=== PATIENT | male | born 1935 | race Caucasian/White ===

== ENCOUNTER 2017-01-30 08:04 | Emergency (ER) | payer MEDICARE, BC ==
[~2017-01-30] VITALS: Ht 172.7 cm; Wt 81.6 kg
--- NOTE | ~2017-01-30 | CR181 ---
[facility] A Service of [facility] & [facility] & [facility] RADIOLOGY TEXT RESULTS PATIENT: MARIS CAZARES LOCATION: [facility] : 37 UNIT #: [id number] AGE: [address]: Elaine Monge SEX: M ORDER DR: [id number] [facility] [address] [place], [place] [address] [id number] E MR#: [id number] Acc #: [id number] NAME: MARIS CAZARES : 1935 SEX: M STUDY DATE/TIME: 01/30/2017 9:07 UNIT: [facility] ROOM: STUDY DESCRIPTION: CR Lumbar Spine 2 or 3 Views Attending Physician: Elaine Monge P.A.-C. Ordering Physician: Elaine Monge P.A.-C. Primary Care Physician: Jorge Lopez M.D. MEDICAL IMAGING REPORT This report is preliminary unless electronic signature is present EXAM Lumbar series, 01/30/2017. INDICATIONS 81-year-old male with history of low back pain for 2 weeks, fell week ago but the patient says the hip has been hurting for longer. TECHNIQUE Three views of the lumbar spine. COMPARISON We have no comparisons FINDINGS There is minimal grade 1 antegrade listhesis of L5 on S1. This probably relates to degenerative facet arthropathy which is moderately severe. Alignment otherwise preserved. Vertebral body heights intact. 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 Marginal osteophytes are prominent in the upper lumbar and lower thoracic levels. There is atherosclerotic disease of the aorta and there is aneurysmal dilatation of the infrarenal abdominal aorta at the L4-5 level measuring up to at least 4 cm. IMPRESSION 1. Degenerative changes in the lumbar spine. No acute fracture. Grade 1 antegrade listhesis of L5 on S1, probably relates to facet arthropathy. 2. Aneurysmal dilatation of the infrarenal abdominal aorta measures greater than 4 cm at the L 4-5 level. This could be better assessed with cross-sectional imaging when clinically appropriate. We have no comparisons in our system. [facility] A Service of [facility] & [facility] & [facility] RADIOLOGY TEXT RESULTS PATIENT: MARIS CAZARES LOCATION: [facility] : 37 UNIT #: [id number] AGE: [address]: Elaine Monge SEX: M ORDER DR: Dictated by... Keenan Cintron M.D. THIS IS AN ELECTRONICALLY VERIFIED REPORT Keenan Cintron M.D. at 01/30/2017 5:18 PM MARY/nereida TD: 01/30/2017 13:57 JOB #: [id number] MEDICAL IMAGING REPORT Page 1 of 1 COPY
--- NOTE | ~2017-01-30 | CR151 ---
[facility] A Service of [facility] & [facility] RADIOLOGY TEXT RESULTS PATIENT: MARIS CAZARES LOCATION: [facility] : 37 UNIT #: [id number] AGE: [address]: Elaine Monge SEX: M ORDER DR: [id number] [facility] [address] [place], [place] [address] [id number] E MR#: [id number] Acc #: [id number] NAME: MARIS CAZARES : 1935 SEX: M STUDY DATE/TIME: 01/30/2017 9:07 UNIT: [facility] ROOM: STUDY DESCRIPTION: CR Hip Min 2 Views Rt Attending Physician: Elaine Monge P.A.-C. Ordering Physician: Elaine Monge P.A.-C. Primary Care Physician: Jorge Lopez M.D. MEDICAL IMAGING REPORT This report is preliminary unless electronic signature is present EXAM Right hip 01/30/2017 INDICATION 81-year-old male with right hip and low back pain for 2 weeks after a fall 1 week ago but the patient says the hip has been hurting since the fall. TECHNIQUE Two views of the right hip. No comparisons. FINDINGS Bony pelvis intact. Mild degenerative change of the right hip. No acute fracture. The bones are osteopenic. There is atherosclerotic disease. IMPRESSION Mild degenerative change of the right hip. Degenerative change in the lumbar spine. Otherwise negative. Dictated by... Keenan Cintron M.D. THIS IS AN ELECTRONICALLY VERIFIED REPORT Keenan Cintron M.D. at 01/30/2017 5:18 PM MARY/abiel TD: 01/30/2017 13:43 JOB #: [id number] MEDICAL IMAGING REPORT Page 1 of 1 COPY
[~2017-01-30 08:04] MED LIST: ADVAIR 2501 DISK W/D; AFEDITAB CR30 MG PO; ALBUTEROL17 GM; ASPIRIN EC81 M1; COMBIVENT INH14.7 GM; COZAAR25 MG PO; FISH OIL 1,0001 EAC2 PO; LITHIUM; LOTREL; LOTREL 5/20 MG1 CAP; MULTI-DAY VITAM1 TAB PO; NORVASC PO; OSTEO BI-FLEX1 EAC2 PO; PROTONIX PO; SIMVASTATIN40 MG PO; SINGULAIR; SULAR; TRICOR PO; VITAL-D RX TABL1 TAB PO; ZOCOR; [UNRECOGNIZED DRUG - OTHER]
== END 2017-01-30 10:56 | disposition home or self-care (01) ==
LOC: CED 08:04
DX: M16.11 Unilateral primary osteoarthritis, right hip (principal); I10 Essential (primary) hypertension; F17.200 Nicotine dependence, unspecified, uncomplicated; Z98.890 Other specified postprocedural states; Z79.82 Long term (current) use of aspirin; Z79.899 Other long term (current) drug therapy; Z88.8 Allergy status to other drugs, medicaments and biological substances; W18.30XA Fall on same level, unspecified, initial encounter; Y92.009 Unspecified place in unspecified non-institutional (private) residence as the place of occurrence of the external cause
CPT/HCPCS: 72100; 73502; 99283